=== PATIENT | female | born 1995 | race Caucasian/White ===

== ENCOUNTER → 2016-08-05 | Outpatient (CLI) | payer BC ==
[~2016-08-05] MED LIST: ASPI-390; BCPILLS PO; IBUP-1050 PO; METO25TA3 PO
== END | disposition home or self-care (01) ==
LOC: C.PAPS 11:47
PROVIDERS: ATTEND Family Medicine
DX: Z12.72 Encounter for screening for malignant neoplasm of vagina (principal)

== ENCOUNTER → 2016-08-05 | Outpatient (CLI) | payer BC ==
[2016-08-08 01:36] LABS: CHLAMYDIA TRACH RNA*** NOT DETECTED (NOT DETECTED); GC (NEIS GONORRHOEAE)RNA** NOT DETECTED (NOT DETECTED)
== END | disposition home or self-care (01) ==
LOC: C.LABSPEC 11:21
PROVIDERS: ATTEND Family Medicine
DX: Z11.3 Encounter for screening for infections with a predominantly sexual mode of transmission (principal); Z12.72 Encounter for screening for malignant neoplasm of vagina

== ENCOUNTER 2017-06-16 19:37 | Emergency (ER) | payer BC ==
[~2017-06-16] VITALS: Ht 160 cm; Wt 67.9 kg
[~2017-06-16 19:37] MED LIST changes: -METO25TA3 PO; +METO25TA4 PO
[2017-06-16 19:39] VITALS: Ht 160 cm; Wt 67.9 kg
[2017-06-16] MEDS ORDERED: SODIUM CHLORIDE 0.9% 1000ML 1,000 ML IV STA (20:02)
[2017-06-16] MEDS ORDERED: ACETAMINOPHEN 500 MG TAB PO STA (20:02)
[2017-06-16 20:22] LABS: BASO % 0.1 %; BASO ABS # 0.01 K/uL (0-0.2); EOS % 0.1 %; EOS ABS # 0.01 K/uL (0-0.5); HEMATOCRIT 39.9 % (37-47); HEMOGLOBIN 14.3 g/dL (12.0-16.0); IG# 0.02 K/uL (0.00-0.02); MEAN CELL VOLUME 85.3 fL (80-100); MEAN CORPUSCULAR HEMOGLOBIN 30.6 pg (25-34); MEAN CORPUSCULAR HGB CONC 35.8 g/dl (32-36); MEAN PLATELET VOLUME 8.4 fL (7.4-10.4); MONO % 5.6 %; MONO ABS # 0.74 K/uL (0.11-0.59); NEUT ABS # 11.73 K/uL (1.4-6.5); PLATELET COUNT 253 K/uL (130-400); RED CELL DISTRIBUTION WIDTH CV 12.5 % (11.5-14.5); RED CELL DISTRIBUTION WIDTH SD 38.4 fL (36.4-46.3); WHITE BLOOD COUNT 13.31 K/uL (4.8-10.8)
[2017-06-16 20:47] LABS: ALBUMIN 3.6 gm/dl (3.4-5.0); CALCIUM 8.5 mg/dl (8.5-10.1); CREATININE 0.76 mg/dl (0.60-1.20); POTASSIUM 3.7 mmol/L (3.5-5.1)
[2017-06-16 20:57] LABS: TOTAL PROTEIN 7.6 gm/dl (6.4-8.2)
[2017-06-16 21:05] LABS: INFLUENZA B ANTIGEN Neg for Influ B (NEG)
--- NOTE | 2017-06-16 21:05 | DIAGNOSTIC IMAGING REPORT ---
PA CHEST WITH ABDOMINAL SERIES CLINICAL HISTORY: Vomiting and fever. FINDINGS: A PA chest radiograph is obtained. No prior studies are available for comparison at the time of dictation. The cardiomediastinal silhouette is unremarkable. The lungs and pleural spaces are clear. No pneumothorax is seen. The bony thorax is grossly intact. Supine and erect abdominal radiographs are obtained. No prior studies are available for comparison at the time of dictation. There is a nonobstructed abdominal bowel gas pattern. Moderate colonic fecal retention is observed. No evidence of intraperitoneal free air is seen. There are no abnormal abdominal calcifications. The lumbosacral spine and bony pelvis appear intact. A naval piercing is noted. IMPRESSION: 1. No active disease in the chest. 2. Nonobstructed abdominal bowel gas pattern noting moderate constipation. Electronically signed by: Deandre Garcia M.D. 06/16/2017 9:04 PM Dictated Date/Time: 06/16/2017 9:03 PM
[2017-06-16] MEDS ORDERED: SODIUM CHLORIDE 0.9% 500ML 500 ML IV STA (21:33)
[2017-06-16] MEDS ORDERED: KETOROLAC TROMETHAMINE 30 MG/ML VIAL IV STA (22:19)
[2017-06-16] MEDS ORDERED: TPRSR/25 PO (22:45)
--- NOTE | 2017-06-16 22:50 | EMERGENCY ROOM VISIT NOTE ---
History Report prepared by Jacques: Nichelle Jenkins Under the Supervision of: Dr. Kathrine Vallejo D.O. First contact with patient: 19:47 Chief Complaint: FEVER Stated Complaint: FEVER 103.9 History of Present Illness The patient is a 22 year old female who presents to the Emergency Room with complaints of persistent fever starting earlier today. Her temperature was 103.9. She has tried taking ibuprofen. She last took 2 ibuprofen at 1200. She has vomited 5-6 times today. She started having a sore throat yesterday which has not resolved. She was on a 10 day course of amoxicillin several weeks ago when she had a sore throat and swollen lymph nodes. She had diarrhea during and amoxicillin which resolved after she was done with them. She finished the antibiotics 2 weeks ago. She is currently nauseous. She denies any black or bloody stool, bloody vomit, abdominal pain, urinary symptoms, cough, SOB, chest pain, runny nose, or rash. 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 She has received a flu shot. She has a history of SVT and UTI. She denies any other medical problems. She has not been eating or drinking as normal. Source of History: patient Onset: earlier today Symptom Intensity: 103.9 Quality: other (fever) Timing: other (persistent) Modifying Factors (Relieving): ibuprofen Associated Symptoms: + sorethroat, + nausea, + vomiting, No cough, No chest pain, No SOB, No abdominal pain, No melena, No hematochezia, No urinary symptoms , No rash Review of Systems See HPI for pertinent positives & negatives. A total of 10 systems reviewed and were otherwise negative. Past Medical & Surgical Medical Problems: (1) SVT (supraventricular tachycardia) Family History No pertinent family history Social History Smoking Status: Never Smoker Marital Status: single Housing Status: lives with roommate Occupation Status: employed, student Current/Historical Medications Scheduled Control Pills ( Control Pills), 1 TAB PO DAILY Metoprolol Succinate (Metoprolol Succinate ER), 25 MG PO DAILY Allergies Coded Allergies: No Known Allergies (Unverified , 04/17/15) Physical Exam Vital Signs Date Time Temp Pulse Resp B/P (MAP) Pulse Ox O2 Delivery O2 Flow Rate FiO2 06/16/17 23:02 37.9 99 16 117/51 99 06/16/17 22:06 103 20 123/74 94 Room Air 06/16/17 21:46 38.1 06/16/17 21:07 108 16 125/73 96 Room Air 06/16/17 19:39 37.2 127 20 115/60 99 Room Air Physical Exam GENERAL: alert, mildly ill appearing, well nourished, no distress, non-toxic EYE EXAM: normal conjunctiva, PERRL and EOM's grossly intact OROPHARYNX: no exudate, no erythema, lips, buccal mucosa, and tongue normal and mucous membranes are dry NECK: supple, no nuchal rigidity, no adenopathy, non-tender LUNGS: Clear to auscultation. Normal chest wall mechanics, no w/r/r HEART: no murmurs, S1 normal and S2 normal ABDOMEN: abdomen soft, non-tender, normo-active bowel sounds, no masses, no rebound or guarding. BACK: Back is symmetrical on inspection and there is no deformity, no midline tenderness, no CVA tenderness. SKIN: no rashes and no bruising UPPER EXTREMITIES: upper extremities are grossly normal. Full range of motion, normal pulses. LOWER EXTREMITIES: No pitting edema. Full range of motion, normal pulses. NEURO EXAM: Normal sensorium, cranial nerves II-XII grossly intact, normal speech, no gross weakness of arms, no gross weakness of legs. Medical Decision & Procedures ER Provider Diagnostic Interpretation: Radiology results have been interpreted by the radiologist and reviewed by me. PA CHEST WITH ABDOMINAL SERIES CLINICAL HISTORY: Vomiting and fever. FINDINGS: A PA chest radiograph is obtained. No prior studies are available for comparison at the time of dictation. The cardiomediastinal silhouette is unremarkable. The lungs and pleural spaces are clear. No pneumothorax is seen. The bony thorax is grossly intact. Supine and erect abdominal radiographs are obtained. No prior studies are available for comparison at the time of dictation. There is a nonobstructed abdominal bowel gas pattern. Moderate colonic fecal retention is observed. No evidence of intraperitoneal free air is seen. There are no abnormal abdominal calcifications. The lumbosacral spine and bony pelvis appear intact. A naval piercing is noted. IMPRESSION: 1. No active disease in the chest. 2. Nonobstructed abdominal bowel gas pattern noting moderate constipation. Electronically signed by: Deandre Garcia M.D. 06/16/2017 9:04 PM Dictated Date/Time: 06/16/2017 9:03 PM Laboratory Results 06/16/17 20:01 Red Blood Count 4.68, Mean Corpuscular Volume 85.3, Mean Corpuscular Hemoglobin 30.6, Mean Corpuscular Hemoglobin Concent 35.8, Mean Platelet Volume 8.4, Neutrophils (%) (Auto) 88.0, Lymphocytes (%) (Auto) 6.0, Monocytes (%) (Auto) 5.6, Eosinophils (%) (Auto) 0.1, Basophils (%) (Auto) 0.1, Neutrophils # (Auto) 11.73, Lymphocytes # (Auto) 0.80, Monocytes # (Auto) 0.74, Eosinophils # (Auto) 0.01, Basophils # (Auto) 0.01 06/16/17 20:01 Test 06/16/17 20:01 06/16/17 20:05 White Blood Count 13.31 K/uL (4.8-10.8) Red Blood Count 4.68 M/uL (4.2-5.4) Hemoglobin 14.3 g/dL (12.0-16.0) Hematocrit 39.9 % (37-47) Mean Corpuscular Volume 85.3 fL (80-100) Mean Corpuscular Hemoglobin 30.6 pg (25-34) Mean Corpuscular Hemoglobin Concent 35.8 g/dl (32-36) Platelet Count 253 K/uL (130-400) Mean Platelet Volume 8.4 fL (7.4-10.4) Neutrophils (%) (Auto) 88.0 % Lymphocytes (%) (Auto) 6.0 % Monocytes (%) (Auto) 5.6 % Eosinophils (%) (Auto) 0.1 % Basophils (%) (Auto) 0.1 % Neutrophils # (Auto) 11.73 K/uL (1.4-6.5) Lymphocytes # (Auto) 0.80 K/uL (1.2-3.4) Monocytes # (Auto) 0.74 K/uL (0.11-0.59) Eosinophils # (Auto) 0.01 K/uL (0-0.5) Basophils # (Auto) 0.01 K/uL (0-0.2) RDW Standard Deviation 38.4 fL (36.4-46.3) RDW Coefficient of Variation 12.5 % (11.5-14.5) Immature Granulocyte % (Auto) 0.2 % Immature Granulocyte # (Auto) 0.02 K/uL (0.00-0.02) Anion Gap 7.0 mmol/L (3-11) Est Creatinine Clear Calc Drug Dose 105.6 ml/min Estimated GFR () 127.2 Estimated GFR (Non- 109.8 BUN/Creatinine Ratio 15.1 (10-20) Calcium Level 8.5 mg/dl (8.5-10.1) Total Bilirubin 0.7 mg/dl (0.2-1) Aspartate Amino Transf (AST/SGOT) 17 U/L (15-37) Alanine Aminotransferase (ALT/SGPT) 21 U/L (12-78) Alkaline Phosphatase 64 U/L (45-117) Total Protein 7.6 gm/dl (6.4-8.2) Albumin 3.6 gm/dl (3.4-5.0) Globulin 4.0 gm/dl (2.5-4.0) Albumin/Globulin Ratio 0.9 (0.9-2) Lipase 119 U/L (73-393) Thyroid Stimulating Hormone (TSH) 0.451 uIu/ml (0.300-4.500) Human Chorionic Gonadotropin, Qual NEG (NEG) Urine Color YELLOW Urine Appearance CLEAR (CLEAR) Urine pH 6.0 (4.5-7.5) Urine Specific [place] 1.029 (1.000-1.030) Urine Protein NEG (NEG) Urine Glucose (UA) NEG (NEG) Urine Ketones 2+ (NEG) Urine Occult Blood TRACE (NEG) Urine Nitrite NEG (NEG) Urine Bilirubin NEG (NEG) Urine Urobilinogen NEG (NEG) Urine Leukocyte Esterase SMALL (NEG) Urine WBC (Auto) 5-10 /hpf (0-5) Urine RBC (Auto) 0-4 /hpf (0-4) Urine Hyaline Casts (Auto) 1-5 /lpf (0-5) Urine Epithelial Cells (Auto) >30 /lpf (0-5) Urine Bacteria (Auto) 1+ (NEG) Urine Renal Epithelial Cells /lpf (0-5) Urine Mucus PRESENT (NONE PRSENT) Influenza Type A Antigen Neg for Influ A (NEG) Influenza Type B Antigen Neg for Influ B (NEG) Date/Time Source Procedure Growth Status 06/16/17 20:05 Urine , Clean Catch Urine Culture - Final MORE THAN THREE TYPES OF ORGANISMS FL... Complete Laboratory results per my review. Medications Administered Medications (Trade) Dose Ordered Sig/Danielle Route Start Time Stop Time Status Last Admin Dose Admin Sodium Chloride 1,000 ml @ 999 mls/hr Q1H1M STAT IV 06/16/17 20:02 06/16/17 21:02 DC 06/16/17 20:26 999 MLS/HR Acetaminophen (Tylenol Tab) 1,000 mg NOW STAT PO 06/16/17 20:02 06/16/17 20:04 DC 06/16/17 20:26 1,000 MG Sodium Chloride 500 ml @ 999 mls/hr Q31M STAT IV 06/16/17 21:33 06/16/17 22:03 DC 06/16/17 21:40 999 MLS/HR Ketorolac Tromethamine (Toradol Inj) 30 mg NOW STAT IV 06/16/17 22:19 06/16/17 22:20 DC 06/16/17 22:32 30 MG Ondansetron HCl (ZOFRAN ODT 4MG Home Pack) 1 homepack UD ONCE PO 06/16/17 23:00 06/16/17 23:01 DC 06/16/17 23:01 1 HOMEPACK ECG Per My Interpretation Indication: tachycardia Rate (beats per minute): 100 Rhythm: sinus tachycardia Findings: RBBB (incomplete), other (normal axis, normal intervals) Comparison ECG Date: 03-Feb-2015 Change: no significant change ED Course 1953: The patient was evaluated in room C4. A complete history and physical exam was performed. 2001: Acetaminophen 1000 mg PO, Sodium Chloride 1000 ml @ 999 mls/hr IV. 2132: Sodium Chloride 500 ml @ 999 mls/hr IV. 2129: I reevaluated the patient. She is feeling better. Still tachycardic. 2218: Toradol Inj 30 mg IV. 2241: Upon reevaluation, the patient is feeling better. I discussed the findings and the treatment plan with the patient. She verbalizes agreement and understanding. She was discharged home. 2299: Zofran Odt 4 mg 1 homepack PO. Medical Decision Differential diagnosis: Etiologies such as viral syndrome, otitis, pharyngitis, pneumonia, influenza, meningitis, urinary tract infection, sepsis, bacteremia, as well as others were entertained. Patient markedly improved here with fever control and hydration. It did come delayed the patient has been noncompliant with her beta-luisa due to history of SVT recently and this likely could have contributed to her tachycardia. Initially I thought her tachycardia was most likely due to her fever and dehydration. Patient given IV fluids, and Tylenol initially. Patient able to start sipping p.o. at bedside with no recurrent vomiting. Patient's heart rate markedly improved here and fever improved. Patient's labs and imaging otherwise reassuring. Patient's initial and repeat abdominal exam was soft and nontender. I have a low suspicion for any occult colitis, bowel obstruction, mesenteric ischemia, diverticulitis, appendicitis, GI bleed, perforation, occult pneumonia, pericarditis/myocarditis. Patient with no dysrhythmias, ectopy, or SVT noted on telemetry while here. Patient's UA suboptimal and patient without any symptoms, I do not suspect occult UTI or pyelonephritis. Leukocytosis likely secondary to vomiting. I do not suspect bacteremia/ sepsis. Strep swab negative and sent for culture, patient with no stridor, difficulty swallowing, exudates, or intraoral swelling to suggest deep space infection. I doubt occult strep infection. Patient well-appearing at time of discharge, had been ambulated with a steady gait, tolerating p.o., and is anxious to go home. Discussed hydration, diet, fever control, compliance with her medications, symptoms to watch and return for, close follow-up with her family doctor as a precaution, she verbalized understanding was agreeable with plan. Likely patient with viral syndrome secondary to sick contacts at work. Medication Reconcilliation Current Medication List: was personally reviewed by me Blood Pressure Screening Patient's blood pressure: Normal blood pressure Blood pressure disposition: Did not require urgent referral Impression Primary Impression: Fever Additional Impression: Dehydration Scribe Attestation The scribe's documentation has been prepared under my direction and personally reviewed by me in its entirety. I confirm that the note above accurately reflects all work, treatment, procedures, and medical decision making performed by me. Departure Information Dispostion Home / Self-Care Referrals Aminata Mcgrath D.O. (PCP) Forms HOME CARE DOCUMENTATION FORM, IMPORTANT VISIT INFORMATION Patient Instructions My [facility] Additional Instructions Please rest, drink plenty of clear liquids and frequent intervals to stay well- hydrated. You may use Tylenol and ibuprofen as needed for fevers and body aches. You may eat a bland diet as tolerated. Please continue your regular medications as prescribed. Please follow-up with your family doctor. If you have any recurrent vomiting, develop increased pain, diarrhea, trouble breathing , difficulty swallowing, fevers that do not respond to usual medications, rashes /sores, or you have any other new concerns, please return the emergency room. Problem Qualifiers Primary Impression: Fever Fever type: unspecified Qualified Codes: R50.9 - Fever, unspecified
[2017-06-16] MEDS ORDERED: ONDANSETRON HOME PACK 4MG OD TAB PO ONE (23:00)
[2017-06-16 23:02] VITALS: BP 117/51; PULSE 99; TEMP 37.9; O2SAT 99
== END 2017-06-16 23:05 | disposition home or self-care (01) ==
LOC: C.EDB 19:38 → C.EDC 23:05
DX: R50.9 Fever, unspecified (principal); E86.0 Dehydration; R11.2 Nausea with vomiting, unspecified